=== PATIENT | female | born 1965 | race Two or more races ===

== ENCOUNTER → 2020-04-23 | Outpatient (CLI) | payer MEDICAID ==
--- NOTE | 2020-04-23 16:34 | KCIC ---
EXAM: CHEST PA LATERAL INDICATION: Reason: POSITITVE TB TEST / Spl. Instructions: / History: . TECHNIQUE: PA and lateral views COMPARISON: None FINDINGS: The heart size is normal. The great vessels appear unremarkable. There is no hilar or mediastinal mass. The lungs are clear. There is no pleural effusion or pneumothorax. There are no significant osseous abnormalities. IMPRESSION: No active cardiopulmonary disease. In particular, no evidence of active tuberculosis. Electronically signed by: James Hall MD (04/23/2020 4:31 PM) [id number]
== END | disposition home or self-care (01) ==
LOC: KCIC 15:18
PROVIDERS: ATTEND Internal Medicine
DX: Z11.1 Encounter for screening for respiratory tuberculosis (principal)
CPT/HCPCS: 71046